=== PATIENT | female | born 1970 | race Caucasian/White ===

== ENCOUNTER 2021-01-17 08:05 | Emergency (ER) | payer OTHER ==
[~2021-01-17] VITALS: Ht 165.1 cm; Wt 108.9 kg
[2021-01-17 08:34] LABS: Source, Urine Clean Catch
[2021-01-17] MEDS ORDERED: FLUT1DIS5 INH (08:40)
[2021-01-17] MEDS ORDERED: ALBU90OI INH (08:40)
[2021-01-17] MEDS ORDERED: ZYRTEC10 M2 PO (08:41)
[2021-01-17] MEDS ORDERED: DULO60 PO (08:41)
[2021-01-17] MEDS ORDERED: Flonase 0.05% N16 GM (08:41)
[2021-01-17] MEDS ORDERED: Vitamin D2000 UNIT PO (08:42)
[2021-01-17] MEDS ORDERED: BUPR100 (08:42)
[2021-01-17 08:43] LABS: BASOPHILS ABSOLUTE AUTO 0.06 K/mm3 (0.00-0.23); BASOPHILS PERCENT AUTO 1 % (0-2); EOSINOPHILS ABSOLUTE AUTO 0.29 K/mm3 (0.00-0.68); EOSINOPHILS PERCENT AUTO 3 % (0-6); Hematocrit 41.2 % (33.0-51.0); Hemoglobin 14.1 g/dL (11.5-16.0); IMMATURE GRAN PERCENT AUTO 1 % (0-1); LYMPHOCYTES ABSOLUTE AUTO 2.56 K/mm3 (0.84-5.20); LYMPHOCYTES PERCENT AUTO 23 % (21-46); MONOCYTES ABSOLUTE AUTO 1.01 K/mm3 (0.16-1.47); MONOCYTES PERCENT AUTO 9 % (4-13); Mean Corpuscular HGB 30.2 pg (26.0-34.0); Mean Corpuscular HGB Conc 34.2 g/dL (31.5-36.5); Mean Corpuscular Volume 88 fL (80-100); Mean Platelet Volume 9.7 fL (9.1-12.4); NEUTROPHILS ABSOLUTE AUTO 7.12 K/mm3 (1.96-9.15); NEUTROPHILS PERCENT AUTO 64 % (41-73); Platelet Count 246 K/mm3 (150-400); RDW Coefficient Variation 13.5 % (11.7-14.2); RDW Standard Deviation 43.6 fL (35.1-46.3); Red Blood Cell Count 4.67 M/mm3 (3.80-5.20); White Blood Cell Count 11.14 K/mm3 (4.00-11.30)
[2021-01-17 08:48] LABS: Appearance, Urine Clear (Clear); Bilirubin, Urine Neg (Neg); Blood, Urine 2+ (Neg); Color, Urine Yellow (P-Yellow); Glucose Qualitative, Urine Neg (Neg); Ketones, Urine Neg (Neg); Leukocyte Esterase, Urine Neg (Neg); Nitrite, Urine Neg (Neg); Protein, Urine Neg (Neg); Urobilinogen, Urine NORM (Normal)
[2021-01-17 09:07] LABS: Alanine Aminotransfer (ALT/SGP 47 U/L (12-78); Albumin, Blood 3.2 g/dL (3.4-5.0); Albumin/Globulin Ratio 0.8 (0.8-1.8); Alk Phos 67 U/L (50-136); Anion Gap 2 mmol/L (6-16); Aspartate Aminotrans (AST/SGOT 32 U/L (12-37); Bilirubin, Total 0.2 mg/dL (0.1-1.0); Blood Urea Nitrogen 11 mg/dL (8-24); Bun/Creatinine Ratio 15.9 (12.0-20.0); CO2, Blood 30 mmol/L (21-32); Calcium, Blood 8.2 mg/dL (8.5-10.1); Chloride, Blood 105 mmol/L (98-108); Creatinine, Blood 0.69 mg/dL (0.40-1.00); Globulin, Blood 3.8 g/dL (2.2-4.0); Glomerular Filtration Rate >60 (60-); Glucose, Blood 101 mg/dL (70-99); Potassium, Blood 3.4 mmol/L (3.5-5.5); Sodium, Blood 137 mmol/L (136-145)
[2021-01-17 09:26] LABS: Bacteria Few /hpf; Red Blood Cells, Urine 0-2 /hpf (0-2); Squamous Epithelial Cells Many /hpf (Few)
[2021-01-17] MEDS ORDERED: ONDA4ODT MM (10:36)
[2021-01-17] MEDS ORDERED: DICY20 PO (10:37)
== END 2021-01-17 10:55 | disposition home or self-care (01) ==
LOC: ER 08:05
PROVIDERS: Emergency Medicine
DX: R19.7 Diarrhea, unspecified (principal); J44.9 Chronic obstructive pulmonary disease, unspecified; Z79.899 Other long term (current) drug therapy
CPT/HCPCS: 36415; 80053; 81001; 83690; 85025; 96361; 96374; 96375; 99284-25; A9270; J2405; J2550; J7120

== ENCOUNTER → 2021-10-17 | Outpatient (CLI) | payer OTHER ==
[~2021-10-17] MED LIST: ALBU90OI INH; BUPR100; DICY20 PO; DULO60 PO; FLUT1DIS5 INH; Flonase 0.05% N16 GM; ONDA4ODT MM; Vitamin D2000 UNIT PO; ZYRTEC10 M2 PO
[2021-10-18 09:09] LABS: HBSAG SCREEN Negative (Negative); HCV ANTIBODY 0.1 (0.0-0.9); HIV AB/P24 AG SCREEN Non Reactive (Non Reactive)
[2021-10-20 08:08] LABS: CHLAMYDIA BY NAA Negative (Negative); GONOCOCCUS BY NAA Negative (Negative); TRICH VAG BY NAA Negative (Negative)
== END | disposition home or self-care (01) ==
LOC: LAB SHORT 18:01 → LAB 18:01
PROVIDERS: Family Medicine
DX: Z11.3 Encounter for screening for infections with a predominantly sexual mode of transmission (principal); Z12.4 Encounter for screening for malignant neoplasm of cervix; Z20.2 Contact with and (suspected) exposure to infections with a predominantly sexual mode of transmission
CPT/HCPCS: 86592; 86803; 87340; 87389; 87491; 87591; 87661

== ENCOUNTER → 2023-06-10 | Outpatient (CLI) | payer OTHER ==
[2023-06-10 19:39] LABS: BASOPHILS ABSOLUTE AUTO 0.06 K/mm3 (0.00-0.23); BASOPHILS PERCENT AUTO 1 % (0-2); EOSINOPHILS ABSOLUTE AUTO 0.32 K/mm3 (0.00-0.68); EOSINOPHILS PERCENT AUTO 4 % (0-6); Hematocrit 38.8 % (33.0-51.0); Hemoglobin 13.2 g/dL (11.5-16.0); IMMATURE GRAN ABSOLUTE AUTO 0.04 K/mm3 (0.00-0.10); IMMATURE GRAN PERCENT AUTO 1 % (0-1); LYMPHOCYTES ABSOLUTE AUTO 2.18 K/mm3 (0.84-5.20); LYMPHOCYTES PERCENT AUTO 25 % (21-46); MONOCYTES ABSOLUTE AUTO 0.64 K/mm3 (0.16-1.47); MONOCYTES PERCENT AUTO 7 % (4-13); Mean Corpuscular Volume 85 fL (80-100); Mean Platelet Volume 10.5 fL (9.1-12.4); NEUTROPHILS ABSOLUTE AUTO 5.57 K/mm3 (1.96-9.15); NEUTROPHILS PERCENT AUTO 63 % (41-73); Platelet Count 296 K/mm3 (150-400); RDW Coefficient Variation 13.8 % (11.7-14.2); RDW Standard Deviation 42.6 fL (35.1-46.3); Red Blood Cell Count 4.55 M/mm3 (3.80-5.20); White Blood Cell Count 8.81 K/mm3 (4.00-11.30)
[2023-06-10 22:31] LABS: Alanine Aminotransfer (ALT/SGP 32 U/L (12-78); Albumin, Blood 3.6 g/dL (3.4-5.0); Alk Phos 70 U/L (50-136); Anion Gap 6 mmol/L (6-16); Aspartate Aminotrans (AST/SGOT 17 U/L (12-37); Bilirubin, Total 0.2 mg/dL (0.1-1.0); Blood Urea Nitrogen 16 mg/dL (8-24); Bun/Creatinine Ratio 17.3 (12.0-20.0); CO2, Blood 26 mmol/L (21-32); Chloride, Blood 111 mmol/L (98-108); Cholesterol 153 mg/dL (50-200); Creatinine, Blood 0.92 mg/dL (0.40-1.00); Globulin, Blood 3.6 g/dL (2.2-4.0); Glomerular Filtration Rate 75 (60-); Glucose, Blood 91 mg/dL (70-99); HDL Cholesterol 51 mg/dL (>39); LDL/HDL RATIO 1.3; Low Density Lipoprotein Chol 67 mg/dL (0-110); Sodium, Blood 143 mmol/L (136-145); Thyroid Stimulating Hormone 0.578 uIU/mL (0.360-4.800); Total Protein, Blood 7.2 g/dL (6.4-8.2); Triglycerides 177 mg/dL (30-160); Very Low Density Lipoprot Chol 35 mg/dL (6-32)
== END ==
LOC: LAB SHORT 16:40 → LAB 16:40
PROVIDERS: Physician Assistant
DX: Z51.81 Encounter for therapeutic drug level monitoring (principal); Z79.899 Other long term (current) drug therapy
CPT/HCPCS: 80053; 80061; 82306; 83036; 84443; 85025

== ENCOUNTER 2023-07-31 21:31 | Emergency (ER) | payer OTHER ==
[~2023-07-31] VITALS: Ht 165.1 cm; Wt 113.4 kg
[2023-07-31 21:59] VITALS: BP 159/84
[2023-07-31] MEDS ORDERED: ABILIFY MYCITE10 M2 PO (22:04)
[2023-07-31] MEDS ORDERED: METF500 PO (22:05)
[2023-07-31] MEDS ORDERED: MINIPRESS2 M1 PO (22:05)
[2023-07-31] MEDS ORDERED: MONT10T PO (22:05)
[2023-07-31] MEDS ORDERED: TOPI25 (22:06)
[2023-07-31] MEDS ORDERED: OMEP20ER PO (22:06)
[2023-07-31] MEDS ORDERED: ATOR40TA PO (22:06)
[2023-07-31] MEDS ORDERED: WIXELA 500-501 EAC1 IH (22:07)
[2023-07-31] MEDS ORDERED: BACLOFEN5 M1 PO (22:07)
[2023-08-01] MEDS ORDERED: SULTRIDS PO (02:35)
== END 2023-08-01 02:53 | disposition home or self-care (01) ==
LOC: ER 21:31
DX: L03.311 Cellulitis of abdominal wall (principal); Z88.1 Allergy status to other antibiotic agents; Z79.899 Other long term (current) drug therapy; Z79.84 Long term (current) use of oral hypoglycemic drugs; J44.9 Chronic obstructive pulmonary disease, unspecified; M19.90 Unspecified osteoarthritis, unspecified site
CPT/HCPCS: 96372; 99282-25; A9270; J1885

== ENCOUNTER → 2023-12-03 | Outpatient (CLI) | payer OTHER ==
[~2023-12-03] MED LIST changes: +ABILIFY MYCITE10 M2 PO; +ATOR40TA PO; +BACLOFEN5 M1 PO; +METF500 PO; +MINIPRESS2 M1 PO; +MONT10T PO; +OMEP20ER PO; +SULTRIDS PO; +TOPI25; +WIXELA 500-501 EAC1 IH
== END | disposition home or self-care (01) ==
LOC: LAB 15:05 → LAB SHORT 15:05
DX: L72.9 Follicular cyst of the skin and subcutaneous tissue, unspecified (principal)
CPT/HCPCS: 87070; 87075; 87077; 87147; 87186; 87205

== ENCOUNTER → 2024-09-26 | Outpatient (CLI) | payer OTHER | LOC: LAB 17:30 → LAB SHORT 17:30 | DX: E11.42 Type 2 diabetes mellitus with diabetic polyneuropathy (principal); L60.0 Ingrowing nail; L03.032 Cellulitis of left toe | CPT/HCPCS: 87102; 87210; 87220 ==

== ENCOUNTER → 2024-11-09 | Outpatient (CLI) | payer OTHER ==
[2024-11-09 16:50] LABS: BASOPHILS ABSOLUTE AUTO 0.07 K/mm3 (0.00-0.23); BASOPHILS PERCENT AUTO 1 % (0-2); EOSINOPHILS ABSOLUTE AUTO 0.27 K/mm3 (0.00-0.68); EOSINOPHILS PERCENT AUTO 3 % (0-6); Hematocrit 40.6 % (33.0-51.0); Hemoglobin 13.8 g/dL (11.5-16.0); IMMATURE GRAN ABSOLUTE AUTO 0.03 K/mm3 (0.00-0.10); IMMATURE GRAN PERCENT AUTO 0 % (0-1); LYMPHOCYTES ABSOLUTE AUTO 2.74 K/mm3 (0.84-5.20); LYMPHOCYTES PERCENT AUTO 28 % (21-46); MONOCYTES ABSOLUTE AUTO 0.71 K/mm3 (0.16-1.47); MONOCYTES PERCENT AUTO 7 % (4-13); Mean Corpuscular HGB 28.5 pg (26.0-34.0); Mean Corpuscular Volume 84 fL (80-100); NEUTROPHILS ABSOLUTE AUTO 5.85 K/mm3 (1.96-9.15); NEUTROPHILS PERCENT AUTO 61 % (41-73); Platelet Count 265 K/mm3 (150-400); RDW Coefficient Variation 14.1 % (11.7-14.2); RDW Standard Deviation 42.8 fL (35.1-46.3); Red Blood Cell Count 4.85 M/mm3 (3.80-5.20); White Blood Cell Count 9.67 K/mm3 (4.00-11.30)
[2024-11-09 17:17] LABS: Alanine Aminotransfer (ALT/SGP 32 U/L (12-78); Albumin/Globulin Ratio 1.1 (0.8-1.8); Alk Phos 81 U/L (50-136); Aspartate Aminotrans (AST/SGOT 26 U/L (12-37); Bilirubin, Total 0.3 mg/dL (0.1-1.0); Blood Urea Nitrogen 12 mg/dL (8-24); Bun/Creatinine Ratio 16.5 (12.0-20.0); CHOL/HDL RATIO 2.7; CO2, Blood 23 mmol/L (21-32); Cholesterol 140 mg/dL (50-200); Creatinine, Blood 0.73 mg/dL (0.40-1.00); Globulin, Blood 3.5 g/dL (2.2-4.0); Glomerular Filtration Rate 98 (60-); Glucose, Blood 105 mg/dL (70-99); HDL Cholesterol 52 mg/dL (>39); LDL/HDL RATIO 0.8; Low Density Lipoprotein Chol 43 mg/dL (0-110); Total Protein, Blood 7.5 g/dL (6.4-8.2); Triglycerides 227 mg/dL (30-160); Very Low Density Lipoprot Chol 45 mg/dL (6-32)
[2024-11-09 18:17] LABS: Anion Gap 14 mmol/L (3-11); Chloride, Blood 105 mmol/L (98-108); Potassium, Blood 3.7 mmol/L (3.5-5.5); Sodium, Blood 138 mmol/L (136-145); Thyroid Stimulating Hormone 0.906 uIU/mL (0.360-4.800)
== END | disposition home or self-care (01) ==
LOC: LAB 14:58 → LAB SHORT 14:58
PROVIDERS: Family Medicine
DX: Z51.81 Encounter for therapeutic drug level monitoring (principal); Z79.899 Other long term (current) drug therapy
CPT/HCPCS: 80053; 80061; 82306; 84443; 85025

== ENCOUNTER → 2024-11-09 | Outpatient (CLI) | payer OTHER ==
[2024-11-09 14:16] LABS: Creatinine, Urine Random 82.4 mg/dL (27.00-270.00)
[2024-11-09 14:18] LABS: Microalb/Creat Ratio UR, Rand 7.682 mg/g (0.000-30.000); Microalbumin, Random Urine 6.33 mg/L (0.000-20.000)
== END | disposition home or self-care (01) ==
LOC: LAB SHORT 10:28 → LAB 10:28
PROVIDERS: Family Medicine
DX: E11.9 Type 2 diabetes mellitus without complications (principal)
CPT/HCPCS: 82043; 82570

== ENCOUNTER → 2024-11-29 | Outpatient (CLI) | payer OTHER | END | disposition home or self-care (01) | LOC: LAB 07:17 → LAB SHORT 07:17 | DX: N88.0 Leukoplakia of cervix uteri (principal); R87.613 High grade squamous intraepithelial lesion on cytologic smear of cervix (HGSIL) | CPT/HCPCS: 88305 ==